=== PATIENT | female | born 1935 | race Caucasian/White ===

== ENCOUNTER → 2017-07-21 | Outpatient (CLI) | payer OTHER, MEDICARE ==
[~2017-07-21] MED LIST: D3 + K2 DOTS 11 EACH PO; FOLBIC RF1 TAB PO; HYDROCHLOROTHIA1 TA1 PO
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
== END ==
LOC: RAD 13:10
DX: R06.02 Shortness of breath (principal); V89.2XXA Person injured in unspecified motor-vehicle accident, traffic, initial encounter

== ENCOUNTER → 2017-09-27 | Outpatient (CLI) | payer MEDICARE ==
--- NOTE | 2017-09-27 17:47 | RADIOLOGY REPORT PS360 ---
DEXA DEXA SCAN.-BONE DENSITY STUDY HIPS AND LUMBAR SPINE HISTORY: Postmenopausal female low calcium intake. Taking vitamin D. TECHNIQUE: DEXA scan hip and lumbar spine The most complete data summary and color graphic presentation of the today's ( and any prior ) DEXA findings are available in PACS. Definition and treatment guidelines included. COMPARISON: None listed no previous available LUMBAR SPINE: L2 vertebral body demonstrates the lowest T score -2.4 with BMD0.916 g/cm sq Overall mean lumbar L1-L4 T score -1.3 with BMD1.022 g/cm sq .. HIPS:. Femoral neck density is best predictor of hip fracture risk . Right femoral neck demonstrates the lowest T score -2.7 with BMD0.664 g/cm sq . Left femoral neck T score -2.5 with BMD 0.684 . Today overall average Hip Mean T score -2.6 with BMD0.686 g/cm sq .. = Early osteoporosis IMPRESSION 1. LUMBAR SPINE: Osteopenia. Lowest T-score at encountered L2 vertebra = -2.4 2. HIPS:= Early osteoporosis both with overall mean value hips as well as at both femoral neck regions. WHO criteria for post-menopausal, Women: Normal: T-score at or above -1 SD Osteopenia: T-score between -1 and -2.5 SD Osteoporosis: T-score at or below -2.5 SD
--- NOTE | 2017-10-01 10:13 | RADIOLOGY REPORT PS360 ---
DIG MAMM-SCREEN JEANETTE W/CAD CAD Screening COMPARISON: Digital mammograms 11/16/2015 and 10/13/2014 INDICATION: Is a history of breast cancer in patient's cousin. There is been previous biopsy right breast. TECHNIQUE: Standard CC and MLO images were obtained. R2 CAD reviewed. FINDINGS: Prominent diffuse heterogenic fibroglandular densities are seen throughout both breast somewhat lessening the sensitivity of mammography. There are stable asymmetric benign-appearing density upper outer quadrant of the left breast noted to be a cyst on ultrasound performed 12/02/2015 there is moderate diffuse arterial calcification in each breast. The cardiac pacemaker overlies the left axilla as noted previously. There is no new or suspicious lesion and there are no suspicious microcalcifications. IMPRESSION: Diffusely dense parenchymal pattern with no suspicious lesion seen recommend yearly follow-up BI-RADS CATEGORY: 2_Benign RECOMMENDED FOLLOWUP: 12M 12 MONTH FOLLOW-UP (A letter has been sent to the patient regarding results of the study.)
== END ==
LOC: RAD 15:11
DX: Z12.31 Encounter for screening mammogram for malignant neoplasm of breast (principal); Z78.0 Asymptomatic menopausal state; Z13.820 Encounter for screening for osteoporosis
CPT/HCPCS: G0202